=== PATIENT | female | born 1980 | race Two or more races ===

== ENCOUNTER → 2024-09-23 | Outpatient (CLI) | payer MEDICAID, SELFPAY ==
--- NOTE | 2024-09-23 15:51 | XR_ITS ---
Examination: Abdomen 2 views Technique one AP supine AP upright abdomen 2 views Exam date and time: September 23, 2024 1412 hours INDICATIONS: Acute constipation FINDINGS: Moderate to large amounts of stool throughout the colon No obstruction No free air IMPRESSION: Moderate to large amounts of stool throughout the colon
== END | disposition home or self-care (01) ==
LOC: CDIM 15:40
PROVIDERS: PCP Nurse Practitioner Family; Referring Provider Nurse Practitioner Family; Visit Provider Nurse Practitioner Family
DX: K59.00 Constipation, unspecified (principal)
CPT/HCPCS: 74019

== ENCOUNTER → 2024-11-13 | Outpatient (CLI) | payer MEDICAID, SELFPAY ==
--- NOTE | 2024-11-13 16:00 | XR_ITS ---
Examination: Pelvic ultrasound, transabdominal, complete Technique: Transabdominal ultrasound of the pelvis performed using grayscale imaging Date and time of exam: November 13, 2024 1434 hours INDICATIONS: Dyspareunia months FINDINGS: Right ovary 8.5 cm uterine fibroid mass 2.7 x 2.3 x 3.1 cm Endometrial stripe 12 mm Right ovary 4.0 cm arterial flow 26 mm cyst Left ovary obscured by bowel gas IMPRESSION: Uterine area of probable fibroid degeneration 27 x 23 x 31 mm, recommend 6 month follow-up transvaginal pelvic sonography
== END | disposition home or self-care (01) ==
PROVIDERS: PCP Nurse Practitioner Family; Referring Provider Nurse Practitioner Family; Visit Provider Nurse Practitioner Family
DX: N85.8 Other specified noninflammatory disorders of uterus (principal); N94.10 Unspecified dyspareunia
CPT/HCPCS: 76856